=== PATIENT | male | born 1980 | race African-American/Black ===

== ENCOUNTER 2019-12-28 22:18 | Emergency (ER) | payer BC, OTHER ==
[2019-12-29 19:26] LABS: SARS-CoV-2 MS2 Positive; SARS-CoV-2 N Gene Positive; SARS-CoV-2 S Gene Positive; SARS-CoV-2 orf1ab Positive
== END 2019-12-29 01:02 | disposition home or self-care (01) ==
LOC: ERS 22:18
DX: U07.1 COVID-19 (principal); F17.210 Nicotine dependence, cigarettes, uncomplicated
CPT/HCPCS: 87635; 99283; U0003